=== PATIENT | male | born 1975 | race Asian ===

== ENCOUNTER 2021-03-11 13:37 | Emergency (ER) | payer OTHER ==
[~2021-03-11] VITALS: Ht 170.2 cm; Wt 78.0 kg
[2021-03-11] MEDS ORDERED: METHOCARBAMOL500 M2 PO (15:17)
[2021-03-11] MEDS ORDERED: NORCO5 PO (15:17)
[2021-03-11 15:45] VITALS: BP 171/99
== END 2021-03-11 15:45 | disposition home or self-care (01) ==
LOC: ER 13:37
DX: S29.012A Strain of muscle and tendon of back wall of thorax, initial encounter (principal); S89.91XA Unspecified injury of right lower leg, initial encounter; M25.462 Effusion, left knee; I10 Essential (primary) hypertension; E11.9 Type 2 diabetes mellitus without complications; X50.1XXA Overexertion from prolonged static or awkward postures, initial encounter; Y93.89 Activity, other specified; Y92.89 Other specified places as the place of occurrence of the external cause; Y99.8 Other external cause status